=== PATIENT | male | born 1945 | race Caucasian/White ===

== ENCOUNTER 2017-10-19 19:57 | Observation (INO) | payer MEDICARE, OTHER ==
[~2017-10-19] VITALS: Ht 180.3 cm; Wt 111.4 kg
[~2017-10-19 19:57] MED LIST: ASPI81CH PO; HYDCHL12.5 PO; LOVA40 PO; METO50ER PO; METOPROLOL ER-1 EACH PO; Prinivil10 MG PO; SULF500; SULF500A PO; TYLENOL PM PO
[2017-10-19 20:25] LABS: BASOPHILS ABSOLUTE AUTO 0.01 K/mm3 (0.00-0.23); BASOPHILS PERCENT AUTO 0 % (0-2); EOSINOPHILS PERCENT AUTO 0 % (0-6); Hematocrit 44.9 % (37.0-53.0); Hemoglobin 14.9 g/dL (13.5-17.5); IMMATURE GRAN ABSOLUTE AUTO 0.02 K/mm3 (0.00-0.10); IMMATURE GRAN PERCENT AUTO 0 % (0-1); LYMPHOCYTES ABSOLUTE AUTO 0.74 K/mm3 (0.84-5.20); LYMPHOCYTES PERCENT AUTO 8 % (21-46); MONOCYTES ABSOLUTE AUTO 0.07 K/mm3 (0.16-1.47); MONOCYTES PERCENT AUTO 1 % (4-13); Mean Corpuscular HGB Conc 33.2 g/dL (31.5-36.5); Mean Corpuscular Volume 90 fL (80-100); Mean Platelet Volume 11.7 fL (9.1-12.4); NEUTROPHILS ABSOLUTE AUTO 8.47 K/mm3 (1.96-9.15); NEUTROPHILS PERCENT AUTO 91 % (41-73); Platelet Count 165 K/mm3 (150-400); RDW Coefficient Variation 13.8 % (11.7-14.2); RDW Standard Deviation 46.2 fL (35.1-46.3); Red Blood Cell Count 4.97 M/mm3 (4.30-5.90); White Blood Cell Count 9.31 K/mm3 (4.00-11.30)
[2017-10-19 20:47] LABS: Alanine Aminotransfer (ALT/SGP 33 U/L (12-78); Alk Phos 93 U/L (50-136); Anion Gap 9 mmol/L (6-16); Aspartate Aminotrans (AST/SGOT 28 U/L (12-37); Bilirubin, Total 0.6 mg/dL (0.1-1.0); Blood Urea Nitrogen 32 mg/dL (8-24); Bun/Creatinine Ratio 26.9 (12.0-20.0); CO2, Blood 26 mmol/L (21-32); Calcium, Blood 9.4 mg/dL (8.5-10.1); Chloride, Blood 106 mmol/L (98-108); Creatinine, Blood 1.19 mg/dL (0.60-1.20); Glomerular Filtration Rate >60 (60-); Glucose, Blood 152 mg/dL (70-99); Potassium, Blood 4.1 mmol/L (3.5-5.5); Sodium, Blood 141 mmol/L (136-145)
[2017-10-19 22:06] LABS: Free Thyroxine 1.28 ng/dL (0.70-1.60)
[2017-10-19 22:08] LABS: Triiodothyronine, Free 2.42 pg/mL (2.18-3.98)
[2017-10-19 22:09] LABS: Thyroid Stimulating Hormone 0.836 uIU/mL (0.360-4.800)
[2017-10-20] MEDS ORDERED: SUMA25 PO (15:06)
[2017-10-20] MEDS ORDERED: GABA100 PO (15:08)
== END 2017-10-20 15:53 | disposition home or self-care (01) ==
LOC: ER 19:57 → MEDS 19:58 → ENPENDDIS 10-20 12:00 → MEDS 10-20 15:53
PROVIDERS: Emergency Medicine
DX: G44.099 Other trigeminal autonomic cephalgias (TAC), not intractable (principal); I10 Essential (primary) hypertension; K51.90 Ulcerative colitis, unspecified, without complications; E04.1 Nontoxic single thyroid nodule; I63.9 Cerebral infarction, unspecified; G45.9 Transient cerebral ischemic attack, unspecified; G47.33 Obstructive sleep apnea (adult) (pediatric); E78.5 Hyperlipidemia, unspecified; E66.01 Morbid (severe) obesity due to excess calories; Z87.891 Personal history of nicotine dependence; Z79.899 Other long term (current) drug therapy; Z68.34 Body mass index [BMI] 34.0-34.9, adult
CPT/HCPCS: 36415; 70450; 70551; 71045; 76536; 80053; 84439; 84443; 84481; 85025; 93005; 93010; 93306; 99285; G0378

== ENCOUNTER 2020-03-07 22:01 | Observation (INO) | payer MEDICARE, BC ==
[~2020-03-07] VITALS: Ht 182.9 cm; Wt 117.5 kg
[~2020-03-07 22:01] MED LIST changes: +GABA100 PO; +SUMA25 PO
[2020-03-07 23:03] LABS: BASOPHILS ABSOLUTE AUTO 0.05 K/mm3 (0.00-0.23); BASOPHILS PERCENT AUTO 1 % (0-2); EOSINOPHILS ABSOLUTE AUTO 0.24 K/mm3 (0.00-0.68); EOSINOPHILS PERCENT AUTO 3 % (0-6); Hematocrit 47.2 % (37.0-53.0); Hemoglobin 15.2 g/dL (13.5-17.5); IMMATURE GRAN ABSOLUTE AUTO 0.03 K/mm3 (0.00-0.10); IMMATURE GRAN PERCENT AUTO 0 % (0-1); LYMPHOCYTES ABSOLUTE AUTO 2.31 K/mm3 (0.84-5.20); LYMPHOCYTES PERCENT AUTO 26 % (21-46); MONOCYTES ABSOLUTE AUTO 0.76 K/mm3 (0.16-1.47); MONOCYTES PERCENT AUTO 9 % (4-13); Mean Corpuscular HGB 28.7 pg (26.0-34.0); Mean Corpuscular HGB Conc 32.2 g/dL (31.5-36.5); Mean Corpuscular Volume 89 fL (80-100); Mean Platelet Volume 12.8 fL (9.1-12.4); NEUTROPHILS ABSOLUTE AUTO 5.53 K/mm3 (1.96-9.15); NEUTROPHILS PERCENT AUTO 62 % (41-73); Platelet Count 162 K/mm3 (150-400); RDW Coefficient Variation 14.5 % (11.7-14.2); RDW Standard Deviation 46.9 fL (35.1-46.3); Red Blood Cell Count 5.29 M/mm3 (4.30-5.90); White Blood Cell Count 8.92 K/mm3 (4.00-11.30)
[2020-03-07 23:17] LABS: Alanine Aminotransfer (ALT/SGP 29 U/L (12-78); Albumin, Blood 3.8 g/dL (3.4-5.0); Alk Phos 93 U/L (50-136); Anion Gap 5 mmol/L (6-16); Aspartate Aminotrans (AST/SGOT 21 U/L (12-37); Bilirubin, Total 0.4 mg/dL (0.1-1.0); Blood Urea Nitrogen 24 mg/dL (8-24); Bun/Creatinine Ratio 18.3 (12.0-20.0); CO2, Blood 28 mmol/L (21-32); Calcium, Blood 9.7 mg/dL (8.5-10.1); Chloride, Blood 106 mmol/L (98-108); Creatinine, Blood 1.31 mg/dL (0.60-1.20); Globulin, Blood 3.7 g/dL (2.2-4.0); Glomerular Filtration Rate 57 (60-); Glucose, Blood 116 mg/dL (70-99); Potassium, Blood 4.2 mmol/L (3.5-5.5); Sodium, Blood 139 mmol/L (136-145); Total Protein, Blood 7.5 g/dL (6.4-8.2); Troponin I <0.015 ng/mL (0.000-0.040)
--- NOTE | 2020-03-08 04:49 | NUR ---
PT ARRIVED TO UNIT @ 0328 VIA STRETCHER, TRANSFERED TO BED W/O ASSISTANCE, ASSUMED CARE AT THIS TIME.
--- NOTE | 2020-03-08 04:50 | NUR ---
SHIFT SUMMARY CHEST PAIN, A/O X4, VSS, STATES SOB W/ EXERTION BUT BETTER W/ REST. HX OF SD IN 2018, STATES THIS CP IS NOT LIKE IT WAS DURING THAT TIME, STATES CP RADIATES TO L SHOULDER, RATES PAIN AT 3/10 ON 0/10 SCALE, STATES IT IS TOLERABLE AT THIS TIME. REQUESTED A PUDDING AND WATER, TOLERATED WELL. ON 2L O2 VIA NC DUE TO SOB. WILL CONTINUE TO MONITOR AND [facility]
[2020-03-08 07:30] LABS: BASOPHILS ABSOLUTE AUTO 0.04 K/mm3 (0.00-0.23); BASOPHILS PERCENT AUTO 1 % (0-2); EOSINOPHILS ABSOLUTE AUTO 0.28 K/mm3 (0.00-0.68); EOSINOPHILS PERCENT AUTO 4 % (0-6); Hematocrit 44.8 % (37.0-53.0); Hemoglobin 14.5 g/dL (13.5-17.5); IMMATURE GRAN ABSOLUTE AUTO 0.02 K/mm3 (0.00-0.10); IMMATURE GRAN PERCENT AUTO 0 % (0-1); LYMPHOCYTES ABSOLUTE AUTO 2.08 K/mm3 (0.84-5.20); LYMPHOCYTES PERCENT AUTO 29 % (21-46); MONOCYTES ABSOLUTE AUTO 0.76 K/mm3 (0.16-1.47); MONOCYTES PERCENT AUTO 11 % (4-13); Mean Corpuscular HGB 28.7 pg (26.0-34.0); Mean Corpuscular HGB Conc 32.4 g/dL (31.5-36.5); Mean Corpuscular Volume 89 fL (80-100); Mean Platelet Volume 12.2 fL (9.1-12.4); NEUTROPHILS ABSOLUTE AUTO 3.89 K/mm3 (1.96-9.15); NEUTROPHILS PERCENT AUTO 55 % (41-73); Platelet Count 145 K/mm3 (150-400); RDW Coefficient Variation 14.5 % (11.7-14.2); RDW Standard Deviation 46.5 fL (35.1-46.3); Red Blood Cell Count 5.05 M/mm3 (4.30-5.90); White Blood Cell Count 7.07 K/mm3 (4.00-11.30)
[2020-03-08 07:46] LABS: CPK Creatine Kinase 50 U/L (39-308)
[2020-03-08 07:58] LABS: Alanine Aminotransfer (ALT/SGP 25 U/L (12-78); Albumin, Blood 3.4 g/dL (3.4-5.0); Alk Phos 81 U/L (50-136); Anion Gap 5 mmol/L (6-16); Aspartate Aminotrans (AST/SGOT 22 U/L (12-37); Bilirubin, Total 0.4 mg/dL (0.1-1.0); Blood Urea Nitrogen 23 mg/dL (8-24); Bun/Creatinine Ratio 19.2 (12.0-20.0); CO2, Blood 26 mmol/L (21-32); Calcium, Blood 9.5 mg/dL (8.5-10.1); Chloride, Blood 109 mmol/L (98-108); Globulin, Blood 3.3 g/dL (2.2-4.0); Glomerular Filtration Rate >60 (60-); Glucose, Blood 111 mg/dL (70-99); Potassium, Blood 4.2 mmol/L (3.5-5.5); Sodium, Blood 140 mmol/L (136-145); Total Protein, Blood 6.7 g/dL (6.4-8.2)
[2020-03-08 15:36] LABS: CPK Creatine Kinase 47 U/L (39-308)
--- NOTE | 2020-03-08 17:07 | NUR ---
SHIFT SUMMARY PT A&OX4, VSS, BEDREST W/BRP, DENIES CP/PRESSURE/SOB AT REST, 1LNC FOR COMFORT, VOIDING WELL, JOSE PO. PLAN FOR NPO AT MIDNIGHT, FOR ANGIOGRAM. WILL REPORT TO ONCOMING NOC RN.
--- NOTE | 2020-03-09 04:20 | NUR ---
SHIFT SUMMARY PT RESTING WELL THIS AM. AAOX4. NPO FOR PROCEDURE. CPAP IN PLACE WHILE RESTING. PT DENIES CHEST PAIN THIS SHIFT. TELEMETRY A-FIB 60s T/O NIGHT. NO ACUTE CHANGES THIS SHIFT. PT CURRENTLY RESTING WITH CALL LIGHT IN REACH.
[2020-03-09 06:40] LABS: International Normalized Ratio 1.08; Prothrombin Time Results 11.5 Sec (9.7-11.5)
--- NOTE | 2020-03-09 12:11 | NUR ---
PT TO ANGIOGRAM, FOLLOWING WITH TRANSFER TO PCU. REPORT PROVIDED TO ENEDELIA MCFARLANE RN. PT A&O4, VSS, NPO SINCE MIDNIGHT, DENIES N&V, DENIES PAIN THIS AM.
--- NOTE | 2020-03-09 12:11 | NUR ---
Telephone report received from Amber Mercer RN. The pt is in the heart center for an angiogram at this time. He will come to PCU 15 afterwards.
--- NOTE | 2020-03-09 14:01 | NUR ---
Pt arrived from the heart center post angiogram at approx 1315. Vital signs stable, right wrist arterial access site visualized with MIRTHA Faith, as well as right groin site. Both are unremarkable, without bleeding, bruising, swelling, or bleeding. Distal pulses and capilary refill is WNL all extremities. Pt stated that he was having no pain, just hungry. Sites were checked again q 15 minutes, without any noted changes. He is eating lunch. IV fluids are infusing as ordered. PT c/o right leg pain at 1400, states that he has a knee problem which gives him chronic pain. Declined offer to be repositioned from back lying position to his side. STates he will be fine.
--- NOTE | 2020-03-09 15:53 | NUR ---
1530 Right groin site and right radial wrist site are unchanged from previous assessments. Distal pulses and capillary refill are WNL. Vital signs are stable. The pt has no complaints of pain or discomfort. IV fluids are infusing, and urinal is within his reach at the bedside. Heart rhythm atrial fibrillation, rate controlled.
--- NOTE | 2020-03-09 15:56 | NUR ---
2 cc of air was removed from the TR band at 1500, and another 2 cc removed at this time. Right wrist site remains unchangd from prior assessments. WHite immobilizer board is still in place.
--- NOTE | 2020-03-09 16:45 | NUR ---
TR band fully deflated at this time; no bruising, bleeding, swelling, nor evidence of hematoma in the right wrist. Pt denies any discomfort or pain except for relentless headache, which he thinks is from the nitroglycerin given during the angiogram. Tylenol so far has been ineffective. Right groin site visualized after pt's HOB was elevated to 30 degrees, and there are no changes from prior assessment. Distal pulses palpable.
--- NOTE | 2020-03-09 17:45 | NUR ---
TR band removed, and site remains without bleeding, hematoma or swelling. Nickel-sized area of bruising noted once TR band was removed. Site cleansed with chlorohexidine swab and air dried, then sterile tegederm dressing applied over the area. Right groin site remains without bleeding, bruising, swelling or hematoma. Distal pulses remain good. PT ate with good appetite, and reports that his headache is slowly going away. IV fluids infusing, pt states that he has voided. HOB elevated to 45 degrees.
[2020-03-10 04:11] LABS: BASOPHILS ABSOLUTE AUTO 0.04 K/mm3 (0.00-0.23); BASOPHILS PERCENT AUTO 1 % (0-2); EOSINOPHILS ABSOLUTE AUTO 0.18 K/mm3 (0.00-0.68); EOSINOPHILS PERCENT AUTO 2 % (0-6); Hematocrit 44.6 % (37.0-53.0); Hemoglobin 14.4 g/dL (13.5-17.5); IMMATURE GRAN ABSOLUTE AUTO 0.03 K/mm3 (0.00-0.10); IMMATURE GRAN PERCENT AUTO 0 % (0-1); LYMPHOCYTES ABSOLUTE AUTO 1.52 K/mm3 (0.84-5.20); LYMPHOCYTES PERCENT AUTO 18 % (21-46); MONOCYTES ABSOLUTE AUTO 0.81 K/mm3 (0.16-1.47); MONOCYTES PERCENT AUTO 10 % (4-13); Mean Corpuscular HGB 28.9 pg (26.0-34.0); Mean Corpuscular HGB Conc 32.3 g/dL (31.5-36.5); Mean Corpuscular Volume 90 fL (80-100); Mean Platelet Volume 12.7 fL (9.1-12.4); NEUTROPHILS ABSOLUTE AUTO 5.99 K/mm3 (1.96-9.15); NEUTROPHILS PERCENT AUTO 70 % (41-73); Platelet Count 141 K/mm3 (150-400); RDW Coefficient Variation 14.6 % (11.7-14.2); RDW Standard Deviation 48.2 fL (35.1-46.3); Red Blood Cell Count 4.98 M/mm3 (4.30-5.90); White Blood Cell Count 8.57 K/mm3 (4.00-11.30)
[2020-03-10 04:29] LABS: Anion Gap 5 mmol/L (6-16); Blood Urea Nitrogen 22 mg/dL (8-24); Bun/Creatinine Ratio 17.7 (12.0-20.0); CO2, Blood 25 mmol/L (21-32); Calcium, Blood 9.1 mg/dL (8.5-10.1); Chloride, Blood 111 mmol/L (98-108); Creatinine, Blood 1.24 mg/dL (0.60-1.20); Glomerular Filtration Rate >60 (60-); Glucose, Blood 104 mg/dL (70-99); Potassium, Blood 4.2 mmol/L (3.5-5.5); Sodium, Blood 141 mmol/L (136-145)
--- NOTE | 2020-03-10 05:38 | NUR ---
PT RESTED COMFORTABLY THROUGH NIGHT AO ROOM AIR TELE AFIB R RADIAL SITE C/D/I NO BM VOIDING TO TOILET WITH SBA NO C/O PAIN VSS CALL LIGHT WITHIN REACH, BED IN LOWEST POSITION. WILL CONTINUE TO MONITOR.
--- NOTE | 2020-03-10 09:00 | NUR ---
0700 Bedside report received from MIRTHA Barry. The pt is awake, and has no complaints or voiced needs at that time. Right wrist arterial access site and right groin site are both unremarkable, and pt denies any pain. States that he has been up walking in room and feels fine. STates that he would like to walk a little bit in the hallway this morning.
[2020-03-10] MEDS ORDERED: LISI5 PO (10:47)
[2020-03-10] MEDS ORDERED: ATOR40TA PO (10:48)
[2020-03-10] MEDS ORDERED: CLOP75 PO (10:49)
[2020-03-10] MEDS ORDERED: NITR.4SL SL (10:50)
[2020-03-10] MEDS ORDERED: Protonix40 MG PO (10:51)
[2020-03-10] MEDS ORDERED: XARELTO20 MG PO (10:52)
[2020-03-10] MEDS ORDERED: ACET325 PO (10:54)
--- NOTE | 2020-03-10 11:37 | NUR ---
Reviewed the pt's new prescriptions, medication changes, and follow up appointments. Groin and wrist site care also reviewed and printed instructions were given to the patient. He was taken out in wheelchair at this time by REINIER Broussard. His is waiting in a private vehicle to drive him home.
== END 2020-03-10 11:40 | disposition home or self-care (01) ==
LOC: ER 22:01 → SURS 22:02 → PCU 03-09 11:42
PROVIDERS: Internal Medicine; Internal Medicine Cardiovascular Disease; Student in an Organized Health Care Education/Training Program; ADMIT Internal Medicine
DX: I25.110 Atherosclerotic heart disease of native coronary artery with unstable angina pectoris (principal); I12.9 Hypertensive chronic kidney disease with stage 1 through stage 4 chronic kidney disease, or unspecified chronic kidney disease; N18.3 Chronic kidney disease, stage 3 (moderate); E78.5 Hyperlipidemia, unspecified; Z95.5 Presence of coronary angioplasty implant and graft; Z79.82 Long term (current) use of aspirin; I48.91 Unspecified atrial fibrillation; K51.90 Ulcerative colitis, unspecified, without complications; Z87.891 Personal history of nicotine dependence; I25.2 Old myocardial infarction; Z79.01 Long term (current) use of anticoagulants; Z79.899 Other long term (current) drug therapy; Z79.02 Long term (current) use of antithrombotics/antiplatelets; E66.01 Morbid (severe) obesity due to excess calories; Z86.73 Personal history of transient ischemic attack (TIA), and cerebral infarction without residual deficits; G47.33 Obstructive sleep apnea (adult) (pediatric); E78.00 Pure hypercholesterolemia, unspecified; Z68.29 Body mass index [BMI] 29.0-29.9, adult
CPT/HCPCS: 36415; 71045; 80048; 80053; 82550; 84484; 85025; 85610; 85730; 86850; 86900; 86901; 93005; 93010; 93458; 94660; 96361; 96374; 99152; 99153; 99285-25; A9270; A9270-GY; C1769; C1894; G0378; J1644; J2250; J3010; J7030; Q0163; Q9967

== ENCOUNTER 2020-06-05 10:35 | Emergency (ER) | payer MEDICARE, BC ==
[~2020-06-05] VITALS: Ht 177.8 cm; Wt 115.7 kg
[~2020-06-05 10:35] MED LIST changes: +ACET325 PO; +ATOR40TA PO; +CLOP75 PO; +LISI5 PO; +NITR.4SL SL; +Protonix40 MG PO; +XARELTO20 MG PO
[2020-06-05 11:00] LABS: BASOPHILS ABSOLUTE AUTO 0.06 K/mm3 (0.00-0.23); BASOPHILS PERCENT AUTO 1 % (0-2); EOSINOPHILS ABSOLUTE AUTO 0.18 K/mm3 (0.00-0.68); EOSINOPHILS PERCENT AUTO 2 % (0-6); Hematocrit 45.6 % (37.0-53.0); Hemoglobin 14.5 g/dL (13.5-17.5); IMMATURE GRAN ABSOLUTE AUTO 0.04 K/mm3 (0.00-0.10); IMMATURE GRAN PERCENT AUTO 1 % (0-1); LYMPHOCYTES ABSOLUTE AUTO 2.22 K/mm3 (0.84-5.20); LYMPHOCYTES PERCENT AUTO 26 % (21-46); MONOCYTES ABSOLUTE AUTO 0.95 K/mm3 (0.16-1.47); MONOCYTES PERCENT AUTO 11 % (4-13); Mean Corpuscular HGB 28.6 pg (26.0-34.0); Mean Corpuscular HGB Conc 31.8 g/dL (31.5-36.5); Mean Corpuscular Volume 90 fL (80-100); Mean Platelet Volume 12.3 fL (9.1-12.4); NEUTROPHILS ABSOLUTE AUTO 4.98 K/mm3 (1.96-9.15); NEUTROPHILS PERCENT AUTO 59 % (41-73); Platelet Count 136 K/mm3 (150-400); RDW Coefficient Variation 14.9 % (11.7-14.2); RDW Standard Deviation 49.6 fL (35.1-46.3); Red Blood Cell Count 5.07 M/mm3 (4.30-5.90); White Blood Cell Count 8.43 K/mm3 (4.00-11.30)
[2020-06-05 11:12] LABS: Alanine Aminotransfer (ALT/SGP 31 U/L (12-78); Albumin, Blood 3.5 g/dL (3.4-5.0); Albumin/Globulin Ratio 0.9 (0.8-1.8); Alk Phos 103 U/L (50-136); Anion Gap 3 mmol/L (6-16); Aspartate Aminotrans (AST/SGOT 29 U/L (12-37); Bilirubin, Total 0.7 mg/dL (0.1-1.0); Blood Urea Nitrogen 18 mg/dL (8-24); Bun/Creatinine Ratio 18.4 (12.0-20.0); CO2, Blood 25 mmol/L (21-32); Chloride, Blood 113 mmol/L (98-108); Creatinine, Blood 0.98 mg/dL (0.60-1.20); Globulin, Blood 3.8 g/dL (2.2-4.0); Glomerular Filtration Rate >60 (60-); Glucose, Blood 87 mg/dL (70-99); Potassium, Blood 3.9 mmol/L (3.5-5.5); Sodium, Blood 141 mmol/L (136-145); Total Protein, Blood 7.3 g/dL (6.4-8.2)
[2020-06-05 11:14] LABS: International Normalized Ratio 1.15; Prothrombin Time Results 12.2 Sec (9.7-11.5)
[2020-06-05] MEDS ORDERED: AMLO10 (11:44)
[2020-06-05] MEDS ORDERED: SULF500 PO (11:45)
[2020-06-05] MEDS ORDERED: ROSU10TA PO (11:45)
[2020-06-05 12:46] LABS: Influenza A, PCR Negative (NEGATIVE); Influenza B, PCR Negative (NEGATIVE); Resp Syncytial Virus, PCR Negative (NEGATIVE); SARS-Cov-2 (COVID-19) PCR, MMC Negative (NEGATIVE)
[2020-06-09] MEDS ORDERED: LISI20 PO (12:19)
[2020-06-09] MEDS ORDERED: LEVETIRACETAM PO (12:23)
[2020-06-09] MEDS ORDERED: OXYC5 (12:23)
[2020-06-09] MEDS ORDERED: MIRALAX17 GM (12:24)
[2020-06-09] MEDS ORDERED: Zofran4 MG (12:24)
[2020-06-09] MEDS ORDERED: LISI5 PO (13:49)
[2020-06-09] MEDS ORDERED: XARELTO20 M1 PO (13:50)
[2020-06-09] MEDS ORDERED: PLAVIX75 MG PO (13:50)
[2020-06-09] MEDS ORDERED: AMLODIPINE BESYL5 MG PO (13:51)
[2020-06-09] MEDS ORDERED: Azulfidine500 M1 PO (13:51)
[2020-06-09] MEDS ORDERED: ATOR40TA PO (13:51)
[2020-06-09] MEDS ORDERED: PANTOPRAZOLE SO40 M2 PO (13:51)
[2020-06-09] MEDS ORDERED: ACET500 PO (19:20)
[2020-06-09] MEDS ORDERED: DOCU100 PO (19:21)
[2020-06-09] MEDS ORDERED: ONDA4 PO (19:22)
[2020-06-09] MEDS ORDERED: OXYC5 PO (19:23)
[2020-06-09] MEDS ORDERED: MIRALAX17 GM PO (19:24)
[2020-06-09] MEDS ORDERED: NITR.4SL SL (19:26)
[2020-06-09] MEDS ORDERED: CLOP75 PO (19:30)
[2020-06-09] MEDS ORDERED: XARELTO20 MG PO (19:30)
== END 2020-06-05 18:29 | disposition short-term general hospital (02) ==
LOC: ER 10:35
PROVIDERS: Emergency Medicine
DX: S06.6X9A Traumatic subarachnoid hemorrhage with loss of consciousness of unspecified duration, initial encounter (principal); S01.01XA Laceration without foreign body of scalp, initial encounter; I10 Essential (primary) hypertension; E78.5 Hyperlipidemia, unspecified; I25.2 Old myocardial infarction; I48.91 Unspecified atrial fibrillation; Z20.828 Contact with and (suspected) exposure to other viral communicable diseases; Z79.899 Other long term (current) drug therapy; Z79.01 Long term (current) use of anticoagulants; Z79.02 Long term (current) use of antithrombotics/antiplatelets; Z86.73 Personal history of transient ischemic attack (TIA), and cerebral infarction without residual deficits; Z95.5 Presence of coronary angioplasty implant and graft; Z87.891 Personal history of nicotine dependence; W11.XXXA Fall on and from ladder, initial encounter
CPT/HCPCS: 0241U; 36415; 70450; 72125; 80053; 85025; 85610; 85730; 86850; 86900; 86901; 93005; 93010; 96374; 99285-25; J2765

== ENCOUNTER 2020-06-14 23:54 | Emergency (ER) | payer MEDICARE, BC ==
[~2020-06-14] VITALS: Ht 180.3 cm; Wt 113.4 kg
[~2020-06-14 23:54] MED LIST changes: +ACET500 PO; +AMLO10; +AMLODIPINE BESYL5 MG PO; +Azulfidine500 M1 PO; +DOCU100 PO; +LEVETIRACETAM PO; +LISI20 PO; +MIRALAX17 GM; +MIRALAX17 GM PO; +ONDA4 PO; +OXYC5; +OXYC5 PO; +PANTOPRAZOLE SO40 M2 PO; +PLAVIX75 MG PO; +ROSU10TA PO; +SULF500 PO; +XARELTO20 M1 PO; +Zofran4 MG
[2020-06-15 00:16] LABS: BASOPHILS ABSOLUTE AUTO 0.06 K/mm3 (0.00-0.23); BASOPHILS PERCENT AUTO 1 % (0-2); EOSINOPHILS PERCENT AUTO 1 % (0-6); Hematocrit 48.6 % (37.0-53.0); Hemoglobin 15.7 g/dL (13.5-17.5); IMMATURE GRAN ABSOLUTE AUTO 0.04 K/mm3 (0.00-0.10); IMMATURE GRAN PERCENT AUTO 0 % (0-1); LYMPHOCYTES ABSOLUTE AUTO 1.87 K/mm3 (0.84-5.20); LYMPHOCYTES PERCENT AUTO 16 % (21-46); MONOCYTES ABSOLUTE AUTO 0.99 K/mm3 (0.16-1.47); MONOCYTES PERCENT AUTO 9 % (4-13); Mean Corpuscular HGB 28.2 pg (26.0-34.0); Mean Corpuscular HGB Conc 32.3 g/dL (31.5-36.5); Mean Corpuscular Volume 87 fL (80-100); Mean Platelet Volume 11.4 fL (9.1-12.4); NEUTROPHILS PERCENT AUTO 73 % (41-73); Platelet Count 160 K/mm3 (150-400); RDW Standard Deviation 45.2 fL (35.1-46.3); Red Blood Cell Count 5.57 M/mm3 (4.30-5.90); White Blood Cell Count 11.46 K/mm3 (4.00-11.30)
[2020-06-15 00:32] LABS: Anion Gap 3 mmol/L (6-16); Blood Urea Nitrogen 19 mg/dL (8-24); Bun/Creatinine Ratio 17.6 (12.0-20.0); CO2, Blood 29 mmol/L (21-32); Calcium, Blood 9.6 mg/dL (8.5-10.1); Chloride, Blood 108 mmol/L (98-108); Creatinine, Blood 1.08 mg/dL (0.60-1.20); Glomerular Filtration Rate >60 (60-); Glucose, Blood 133 mg/dL (70-99); Potassium, Blood 4.1 mmol/L (3.5-5.5); Sodium, Blood 140 mmol/L (136-145)
[2020-06-15] MEDS ORDERED: TRAM50 PO (01:48)
== END 2020-06-15 02:26 | disposition home or self-care (01) ==
LOC: ER 23:54
PROVIDERS: Emergency Medicine
DX: R51.9 Headache, unspecified (principal); R11.2 Nausea with vomiting, unspecified; I10 Essential (primary) hypertension; E78.00 Pure hypercholesterolemia, unspecified; Z87.820 Personal history of traumatic brain injury; Z79.899 Other long term (current) drug therapy; Z79.01 Long term (current) use of anticoagulants; Z79.02 Long term (current) use of antithrombotics/antiplatelets; Z87.891 Personal history of nicotine dependence
CPT/HCPCS: 36415; 80048; 85025; 93005; 93010; 96374; 96375; 99284-25; J0780; J1200; J7030

== ENCOUNTER 2021-09-07 10:49 | Day surgery (SDC) | payer MEDICARE, BC ==
[~2021-09-07] VITALS: Ht 177.8 cm; Wt 118.4 kg
[~2021-09-07 10:49] MED LIST changes: +AMLO10 PO; +PANT40 PO; +TRAM50 PO; +XARELTO10 MG PO
--- NOTE | 2021-09-07 12:42 | NUR ---
PT HERE WITH RHONDA. Ambulatory in Day Surgery. History, Chart, Medications and Allergies reviewed before start of procedure. Lungs clear T/O to Auscultation. Patient confirms NPO status and agrees with scheduled surgery. Pre-Op teaching done. Pt verbalizes understanding.
--- NOTE | 2021-09-07 18:20 | NUR ---
SHIFT SUMMARY PT ARRIVED FROM PACU AT 1800, RESTING/WAKES EASILY, INAJA/WEARS SALVADOR HEARING AIDS, JOSE PO, UNABLE TO MOVE LEGS/WIGGLE TOES BUT REPORTS PAIN 03/27, AWAITING POST OP VOID. VSS/3LNC, CPAP AT BEDSIDE, BIOX ON. WCTM & TREAT PER EMAR UNTIL REPORT PROVIDED TO BRENDAN SHANNON.
[2021-09-08 04:53] LABS: BASOPHILS ABSOLUTE AUTO 0.02 K/mm3 (0.00-0.23); BASOPHILS PERCENT AUTO 0 % (0-2); EOSINOPHILS PERCENT AUTO 0 % (0-6); Hematocrit 43.5 % (37.0-53.0); Hemoglobin 14.2 g/dL (13.5-17.5); IMMATURE GRAN ABSOLUTE AUTO 0.07 K/mm3 (0.00-0.10); IMMATURE GRAN PERCENT AUTO 1 % (0-1); LYMPHOCYTES ABSOLUTE AUTO 0.56 K/mm3 (0.84-5.20); LYMPHOCYTES PERCENT AUTO 4 % (21-46); MONOCYTES ABSOLUTE AUTO 0.68 K/mm3 (0.16-1.47); MONOCYTES PERCENT AUTO 4 % (4-13); Mean Corpuscular HGB 29.5 pg (26.0-34.0); Mean Corpuscular HGB Conc 32.6 g/dL (31.5-36.5); Mean Corpuscular Volume 90 fL (80-100); Mean Platelet Volume 12.3 fL (9.1-12.4); NEUTROPHILS ABSOLUTE AUTO 14.12 K/mm3 (1.96-9.15); NEUTROPHILS PERCENT AUTO 91 % (41-73); Platelet Count 154 K/mm3 (150-400); RDW Coefficient Variation 14.5 % (11.7-14.2); RDW Standard Deviation 47.8 fL (35.1-46.3); Red Blood Cell Count 4.82 M/mm3 (4.30-5.90); White Blood Cell Count 15.45 K/mm3 (4.00-11.30)
--- NOTE | 2021-09-08 04:58 | NUR ---
SHIFT SUMMARY PT POD0 LEFT TOTAL KNEE. PT HAS DONE WELL OVERNIGHT, HE HAS BEEN UP AND AMBULATING THIS SHIFT. PT TOLERATED AMBULATION WITH SOME MILD "ACHES" PER PT. MEDICATED FOR PAIN PER EMAR. DRESSING C/D/I. PT ABLE TO WIGGLE TOES AND DENIES N/T. CRYOTHERAPY, SCDS, AND TEDS IN PLACE ORDERED. PT EXPRESSES CONCERNS ABOUT DISCHARGE THIS SHIFT. HE REPORTS THAT HE DOES NOT FEEL READY FOR DISCHARGE AND DOES NOT THINK THAT HE WILL BE ABLE TO GET AROUND IN HIS TRAILER. PT TOLERATING DIET. VITALS STABLE. NO ACUTE CHANGES OVERNIGHT. BED IN LOWEST POSITION, CALL LIGHT WITHIN REACH.
[2021-09-08 05:17] LABS: Anion Gap 4 mmol/L (6-16); Blood Urea Nitrogen 20 mg/dL (8-24); Bun/Creatinine Ratio 17.9 (12.0-20.0); CO2, Blood 27 mmol/L (21-32); Calcium, Blood 9.3 mg/dL (8.5-10.1); Chloride, Blood 108 mmol/L (98-108); Creatinine, Blood 1.12 mg/dL (0.60-1.20); Glomerular Filtration Rate >60 (60-); Glucose, Blood 189 mg/dL (70-99); Magnesium, Blood 2.1 mg/dL (1.6-2.4); Potassium, Blood 4.5 mmol/L (3.5-5.5); Sodium, Blood 139 mmol/L (136-145)
[2021-09-08] MEDS ORDERED: PROMETHAZINE12.5 M2 PO (07:39)
[2021-09-08] MEDS ORDERED: SULTRIDS PO (07:39)
[2021-09-08] MEDS ORDERED: ROXICODONE5 MG PO (07:41)
--- NOTE | 2021-09-08 12:28 | NUR ---
SHIFT SUMMARY PT A&OX4, VSS/RA, TCDB & I.S. EDU/ENC, JOSE PO, PAIN MANAGED WELL WITH 5 MG OXY AND TYLENOL, VOIDING, AMB SBA FWW & GB. DC INS PROVIDED. PT REP UNDERSTANDING THOSE INSTRUCTIONS; TELEPHONE CALL WITH RE DC INSTRUCTIONS. LEFT FLOOR VIA WC WITH SAIL CUTTER, TO GO HOME WITH , WITH ALL PERSONAL POSSESSIONS INCLUDING EXTRA AQUACEL DRESSINGS, POLAR ROXANA. IV DC'D.
== END 2021-09-08 10:40 | disposition home or self-care (01) ==
LOC: ORSCMMR 10:49 → ORD 12:30 → ORSCMMR 12:30 → SURS 17:46 → ORSCMMR 09-08 10:40
PROVIDERS: Orthopaedic Surgery
PROC: 0SRD0J9 Replacement of Left Knee Joint with Synthetic Substitute, Cemented, Open Approach (ICD-10-PCS; principal; 2021-09-07 12:30)
PROC: 8E0YXBZ Computer Assisted Procedure of Lower Extremity (ICD-10-PCS; principal; 2021-09-07 12:30)
DX: M17.11 Unilateral primary osteoarthritis, right knee (principal); I48.91 Unspecified atrial fibrillation; Z79.01 Long term (current) use of anticoagulants; I10 Essential (primary) hypertension; E78.5 Hyperlipidemia, unspecified; Z86.73 Personal history of transient ischemic attack (TIA), and cerebral infarction without residual deficits; G47.33 Obstructive sleep apnea (adult) (pediatric); Z79.899 Other long term (current) drug therapy; Z85.528 Personal history of other malignant neoplasm of kidney; I25.10 Atherosclerotic heart disease of native coronary artery without angina pectoris; I25.2 Old myocardial infarction; E66.9 Obesity, unspecified; Z68.37 Body mass index [BMI] 37.0-37.9, adult
CPT/HCPCS: 36415; 73560-LT; 80048; 83735; 85025; 97116; 97161; A9270; C1713; C1776; J0171; J0690; J0735; J1100; J1170; J1885; J2250; J2370; J2405; J2704; J2795; J3010; J3370; J7050; J7120

== ENCOUNTER → 2022-01-17 | Outpatient (CLI) | payer MEDICARE, OTHER ==
[~2022-01-17] MED LIST changes: +PROMETHAZINE12.5 M2 PO; +ROXICODONE5 MG PO; +SULTRIDS PO
== END | disposition home or self-care (01) ==
LOC: PLD 07:43 → LAB SHORT 07:43
DX: C44.319 Basal cell carcinoma of skin of other parts of face (principal)
CPT/HCPCS: 88305

== ENCOUNTER 2024-10-14 13:31 | Emergency (ER) | payer MEDICARE, OTHER ==
[~2024-10-14] VITALS: Ht 182.9 cm; Wt 119.3 kg
[~2024-10-14 13:31] MED LIST changes: +OXAYDO5 M6 PO; +PROM25 PO
[2024-10-14 14:57] VITALS: BP 148/85
[2024-10-14] MEDS ORDERED: Metoclopramide HCl 5MG / ML 2ML Vial IV ONE (15:15)
[2024-10-14] MEDS ORDERED: Ketorolac Tromethamine 30mg Vial IV ONE (15:15)
== END 2024-10-14 16:45 | disposition left against medical advice (07) ==
LOC: ER 13:31
DX: R51.9 Headache, unspecified (principal); E78.00 Pure hypercholesterolemia, unspecified; I10 Essential (primary) hypertension; Z87.891 Personal history of nicotine dependence; Z79.899 Other long term (current) drug therapy
CPT/HCPCS: 70450; 93005; 93010; 99284-25

== ENCOUNTER 2025-03-31 10:23 | Day surgery (SDC) | payer MEDICARE, OTHER ==
[~2025-03-31] VITALS: Ht 180.3 cm; Wt 116.4 kg
[~2025-03-31 10:23] MED LIST changes: +Balanced Salt Epinephrine Irrigation Solution 500 mL IR SCH; +Moxifloxacin HCL 0.5 MG/0.1 ML 0.4MLSYR RIGHTEYE SCH; +Ondansetron 4 MG SoluTab MM PRN; +PHENYLEPHRINE\\TROPICAMIDE\\TETRACAINE OPHTHALMIC DILATING SOLN RIGHTEYE PRN; +Povidone-Iodine 450 DROP/30 ML Solution ONE; +Povidone-Iodine 450 DROP/30 ML Solution RIGHTEYE SCH; +Tetracaine HCl/Pf 0.5% Opth Soln 4 ml ONE
[2025-03-31] MEDS ORDERED: FUROSEMIDE20 MG (10:55)
--- NOTE | 2025-03-31 11:31 | NUR ---
03/31/25 1131 Stephanie Mcmillan BP 186/114, HR 56, O2 100% W/ BLOWBY O2 AT 10L.
[2025-03-31 11:38] VITALS: BP 144/89
== END 2025-03-31 11:55 | disposition home or self-care (01) ==
LOC: ORSCSDS 10:23
PROVIDERS: Student in an Organized Health Care Education/Training Program
PROC: 08RJ3JZ Replacement of Right Lens with Synthetic Substitute, Percutaneous Approach (ICD-10-PCS; principal; 2025-03-31 12:00)
DX: H25.813 Combined forms of age-related cataract, bilateral (principal); I10 Essential (primary) hypertension; E78.5 Hyperlipidemia, unspecified; I48.91 Unspecified atrial fibrillation; G47.33 Obstructive sleep apnea (adult) (pediatric); Z86.73 Personal history of transient ischemic attack (TIA), and cerebral infarction without residual deficits; Z79.01 Long term (current) use of anticoagulants; Z79.899 Other long term (current) drug therapy; Z87.891 Personal history of nicotine dependence
CPT/HCPCS: A9270; V2632

== ENCOUNTER 2025-04-08 10:52 | Day surgery (SDC) | payer MEDICARE, OTHER ==
[~2025-04-08] VITALS: Ht 182.9 cm; Wt 116.1 kg
[~2025-04-08 10:52] MED LIST changes: +FUROSEMIDE20 MG; +Moxifloxacin HCL 0.5 MG/0.1 ML 0.4MLSYR LEFTEYE SCH; -Moxifloxacin HCL 0.5 MG/0.1 ML 0.4MLSYR RIGHTEYE SCH; +PHENYLEPHRINE\\TROPICAMIDE\\TETRACAINE OPHTHALMIC DILATING SOLN LEFTEYE PRN; -PHENYLEPHRINE\\TROPICAMIDE\\TETRACAINE OPHTHALMIC DILATING SOLN RIGHTEYE PRN; +Povidone-Iodine 450 DROP/30 ML Solution LEFTEYE SCH; -Povidone-Iodine 450 DROP/30 ML Solution RIGHTEYE SCH; +diazePAM 5 MG,diazePAM 2 MG PO SCH
--- NOTE | 2025-04-08 12:16 | NUR ---
04/08/25 1216 Maria Dolores Carr VITALS AT 1216 BP: 137/85 P: 59 O2: 98% WITH 9 LITERS OF BLOW BY OXYGEN
--- NOTE | 2025-04-08 12:32 | NUR ---
04/08/[address] AT BEDSIDE
[2025-04-08 12:34] VITALS: BP 121/82
== END 2025-04-08 12:47 | disposition home or self-care (01) ==
LOC: ORSCSDS 10:52
PROVIDERS: Student in an Organized Health Care Education/Training Program
PROC: 08RK3JZ Replacement of Left Lens with Synthetic Substitute, Percutaneous Approach (ICD-10-PCS; principal; 2025-04-08 12:30)
DX: H25.812 Combined forms of age-related cataract, left eye (principal); Z96.1 Presence of intraocular lens; Z87.891 Personal history of nicotine dependence; I10 Essential (primary) hypertension; E78.5 Hyperlipidemia, unspecified; I48.91 Unspecified atrial fibrillation; G47.33 Obstructive sleep apnea (adult) (pediatric); Z86.73 Personal history of transient ischemic attack (TIA), and cerebral infarction without residual deficits; Z79.01 Long term (current) use of anticoagulants; Z79.899 Other long term (current) drug therapy
CPT/HCPCS: A9270; V2632

== ENCOUNTER 2025-04-11 16:34 | Emergency (ER) | payer MEDICARE, OTHER ==
[~2025-04-11] VITALS: Ht 182.9 cm; Wt 111.1 kg
[~2025-04-11 16:34] MED LIST changes: -Balanced Salt Epinephrine Irrigation Solution 500 mL IR SCH; -Moxifloxacin HCL 0.5 MG/0.1 ML 0.4MLSYR LEFTEYE SCH; -Ondansetron 4 MG SoluTab MM PRN; -PHENYLEPHRINE\\TROPICAMIDE\\TETRACAINE OPHTHALMIC DILATING SOLN LEFTEYE PRN; -Povidone-Iodine 450 DROP/30 ML Solution LEFTEYE SCH; -Povidone-Iodine 450 DROP/30 ML Solution ONE; -Tetracaine HCl/Pf 0.5% Opth Soln 4 ml ONE; -diazePAM 5 MG,diazePAM 2 MG PO SCH
[2025-04-11 17:00] LABS: BASOPHILS ABSOLUTE AUTO 0.02 K/mm3 (0.00-0.23); BASOPHILS PERCENT AUTO 0 % (0-2); EOSINOPHILS ABSOLUTE AUTO 0.23 K/mm3 (0.00-0.68); EOSINOPHILS PERCENT AUTO 3 % (0-6); Hematocrit 44.6 % (37.0-53.0); Hemoglobin 15.0 g/dL (13.5-17.5); IMMATURE GRAN ABSOLUTE AUTO 0.01 K/mm3 (0.00-0.10); IMMATURE GRAN PERCENT AUTO 0 % (0-1); LYMPHOCYTES ABSOLUTE AUTO 1.68 K/mm3 (0.84-5.20); LYMPHOCYTES PERCENT AUTO 23 % (21-46); MONOCYTES ABSOLUTE AUTO 0.65 K/mm3 (0.16-1.47); MONOCYTES PERCENT AUTO 9 % (4-13); Mean Corpuscular HGB Conc 33.6 g/dL (31.5-36.5); Mean Corpuscular Volume 89 fL (80-100); NEUTROPHILS ABSOLUTE AUTO 4.74 K/mm3 (1.96-9.15); NEUTROPHILS PERCENT AUTO 65 % (41-73); NRBC ABSOLUTE 0.00 K/mm3 (0.00-0.02); NRBC Auto 0.0 /100 WBC (0.0-0.2); Platelet Count 144 K/mm3 (150-400); RDW Coefficient Variation 14.7 % (11.7-14.2); RDW Standard Deviation 48.2 fL (35.1-46.3)
[2025-04-11 17:40] LABS: Alanine Aminotransfer (ALT/SGP 70.0 U/L (12-78); Albumin, Blood 3.7 g/dL (3.4-5.0); Albumin/Globulin Ratio 1.1 (0.8-1.8); Anion Gap 4.0 mmol/L (3-11); Aspartate Aminotrans (AST/SGOT 100.0 U/L (12-37); Bilirubin, Total 0.8 mg/dL (0.1-1.0); Blood Urea Nitrogen 16.0 mg/dL (8-24); CO2, Blood 30.0 mmol/L (21-32); Calcium, Blood 9.7 mg/dL (8.5-10.1); Chloride, Blood 107.0 mmol/L (98-108); Creatinine, Blood 1.09 mg/dL (0.60-1.20); Globulin, Blood 3.5 g/dL (2.2-4.0); Glucose, Blood 116.0 mg/dL (70-99); Potassium, Blood 4.0 mmol/L (3.5-5.5); Sodium, Blood 137.0 mmol/L (136-145); Total Protein, Blood 7.2 g/dL (6.4-8.2)
[2025-04-11 19:30] VITALS: BP 159/92
== END 2025-04-11 19:52 | disposition home or self-care (01) ==
LOC: ER 16:34
PROVIDERS: Student in an Organized Health Care Education/Training Program
DX: R07.9 Chest pain, unspecified (principal); I10 Essential (primary) hypertension; E78.00 Pure hypercholesterolemia, unspecified; Z95.5 Presence of coronary angioplasty implant and graft; Z87.891 Personal history of nicotine dependence; Z79.01 Long term (current) use of anticoagulants; Z79.899 Other long term (current) drug therapy
CPT/HCPCS: 71046; 80053; 83690; 84484; 85025; 93005; 93010; 99285-25